=== PATIENT | female | born 1965 | race Two or more races ===

== ENCOUNTER 2020-08-09 07:44 | Day surgery (SDC) | payer OTHER | END 2020-08-09 14:40 | disposition home or self-care (01) | LOC: AMB-ENDOS 07:44 | PROVIDERS: ATTEND Colon & Rectal Surgery | DX: D12.3 Benign neoplasm of transverse colon (principal); K64.8 Other hemorrhoids; Z20.822 Contact with and (suspected) exposure to COVID-19 ==

== ENCOUNTER 2020-11-18 19:39 | Emergency (ER) | payer OTHER ==
[~2020-11-18] VITALS: Ht 167.6 cm; Wt 104.3 kg
[2020-11-18] MEDS ORDERED: VASOTEC5 MG PO (19:53)
[2020-11-18] MEDS ORDERED: SYNTHROID200 MCG PO (19:53)
[2020-11-18] MEDS ORDERED: RESTORIL30 MG PO (19:54)
[2020-11-18] MEDS ORDERED: HYDROCHLOROTHIA25 MG PO (19:54)
[2020-11-18] MEDS ORDERED: PRILOSEC OTC20 MG PO (19:55)
[2020-11-18] MEDS ORDERED: NORVASC2.5 M1 PO (19:55)
[2020-11-18] MEDS ORDERED: CLONAZEPAM1 MG PO (19:57)
[2020-11-18] MEDS ORDERED: ANASTROZOLE1 MG PO (19:58)
== END 2020-11-19 16:21 | disposition home or self-care (01) ==
LOC: ER 19:39
DX: K43.2 Incisional hernia without obstruction or gangrene (principal); R10.13 Epigastric pain; K45.8 Other specified abdominal hernia without obstruction or gangrene; K56.690 Other partial intestinal obstruction